=== PATIENT | female | born 1940 | race Caucasian/White ===

== ENCOUNTER → 2017-09-13 | Outpatient (CLI) | payer MEDICARE ==
[2017-09-13 11:13] LABS: BASO % 1 % (0-3); EOS # 0.3 x10^3/uL (0.0-0.7); EOS % 5 % (0-3); HEMATOCRIT 41.1 % (36.0-47.0); HEMOGLOBIN 13.8 g/dL (12.0-15.5); LYMPH # 1.5 x10^3/uL (1.0-4.8); LYMPH % 25 % (24-48); MEAN CORPUSCULAR HEMOGLOBIN 31 pg (25-35); MEAN CORPUSCULAR HGB CONC 34 g/dL (31-37); MEAN CORPUSCULAR VOLUME 91 fL (79-100); MONO # 0.7 x10^3/uL (0.0-1.1); MONO % 12 % (0-9); NEUT # 3.3 x10^3uL (1.8-7.7); NEUT % 58 % (31-73); PLATELET COUNT 261 x10^3/uL (140-400); RED CELL DISTRIBUTION WIDTH 13.8 % (11.5-14.5); WHITE BLOOD COUNT 5.8 x10^3/uL (4.0-11.0)
--- NOTE | 2017-09-13 12:40 | RAD ---
EXAM: Maxillofacial bone CT without contrast. HISTORY: Sinusitis. TECHNIQUE: Computed tomographic images of the paranasal sinuses were obtained without contrast. *One or more of the following individualized dose reduction techniques were utilized for this examination: 1. Automated exposure control. 2. Adjustment of the mA and/or kV according to patient size. 3. Use of iterative reconstruction technique. COMPARISON: None. FINDINGS: The paranasal sinuses are clear. The ostiomeatal units are patent. There is a right grabiel bullosa. There is mild nasal septal deviation. There is evidence of lens surgery. The mastoid air cells are clear. No calvarial lesion is seen. There is cerebral volume loss. There are areas of hypodensity within the cerebral white matter likely due to chronic small vessel disease. IMPRESSION: No evidence of acute sinusitis. Electronically signed by: Rita Gutierrez MD (09/13/2017 12:37 PM) [id number]
[2017-09-17 14:08] LABS: ALTERNARIA 0.27 kU/L (Class 0/I); ASH <0.10 kU/L (Class 0); ASPERGILLUS <0.10 kU/L (Class 0); BERMUDA <0.10 kU/L (Class 0); CAT DANDER <0.10 kU/L (Class 0); CLADOSPORIUM <0.10 kU/L (Class 0); COCKROACH <0.10 kU/L (Class 0); COTTONWOOD <0.10 kU/L (Class 0); DOG DANDER <0.10 kU/L (Class 0); DUST MITE <0.10 kU/L (Class 0); ELM <0.10 kU/L (Class 0); MAPLE <0.10 kU/L (Class 0); MOUNTAIN CEDAR <0.10 kU/L (Class 0); MULBERRY <0.10 kU/L (Class 0); NETTLE <0.10 kU/L (Class 0); OAK TREE <0.10 kU/L (Class 0); PENICILLIUM <0.10 kU/L (Class 0); RAST IGE 9 IU/mL (0-100); RUSSIAN THISTLE <0.10 kU/L (Class 0); SHEEP SORREL <0.10 kU/L (Class 0); SHORT RAGWEED 0.15 kU/L (Class 0/I); TIMOTHY GRASS <0.10 kU/L (Class 0)
== END | disposition home or self-care (01) ==
LOC: CT 10:21
PROVIDERS: ATTEND Specialist
DX: J32.9 Chronic sinusitis, unspecified (principal); J34.2 Deviated nasal septum; J45.909 Unspecified asthma, uncomplicated; R05 Cough
CPT/HCPCS: 36415; 70486; 82784; 85025; 86001

== ENCOUNTER → 2018-04-23 | Outpatient (CLI) | payer MEDICARE ==
--- NOTE | 2018-04-23 16:46 | RAD ---
EXAM: CT Chest without IV contrast CLINICAL HISTORY: asthma, chronic fatigue COMPARISON: Radiograph 09/10/2015 TECHNIQUE: CT of the chest without intravenous contrast. Axial, coronal and sagittal reformatted images were generated. ---PQRS compliance statement - One or more of the following individualized dose reduction techniques were utilized for this study: 1. Automated exposure control 2. Adjustment of the mA and/or kV according to patient size 3. Use of iterative reconstruction technique--- FINDINGS: Lack of intravenous contrast limits evaluation of solid organs, vasculature, and lymph nodes. Chest: A 1.6 cm right thyroid nodule is seen. This can be further assessed by CT. A lipoma is seen displacing the right latissimus dorsi muscle at the level of the scapula, possibly intramuscular. This results in mild mass effect on portions of the right brachial plexus inferiorly. Heart is not enlarged. Coronary artery calcifications are seen. No pericardial effusion. Ascending aorta measures approximately 3.8 cm. No pleural effusion or pneumothorax. No thoracic lymphadenopathy. Dependent opacities bilaterally, likely atelectasis. If 4 mm right upper lobe lung nodule (image 22) is seen. Mild emphysematous changes are seen. Calcified granulomas are seen. Visualized Upper abdomen: Changes of gastroesophageal surgery, likely fundoplication, are seen. Left renal cystic lesion is seen measuring 1.9 cm. Bones: Degenerative changes of the spine are partially profiled. IMPRESSION: 1. Minimal dependent opacities bilaterally likely atelectasis. 2. 4 mm lung nodule seen in the right upper lobe. This can be further evaluated with CT in one year. 3. Lipomatous lesion in the right axillary region mildly displacing the latissimus dorsi muscle abuts and causes mild mass effect on the right brachial plexus. Electronically signed by: Ric Grove MD (04/23/2018 4:43 PM) [facility]
--- NOTE | 2018-04-23 16:51 | RAD ---
CLINICAL HISTORY: nasal congestion COMPARISON: None available. TECHNIQUE: Helical CT of the face/paranasal sinuses were acquired. Coronal and sagittal reformats were also generated and reviewed. FINDINGS: No definite fracture is noted of the facial bones. The visualized paranasal sinuses are well-aerated. No evidence of air-fluid levels. The mastoids are unremarkable. The globes, extraocular muscles, optic nerves and retrobulbar fat are normal. Visualized upper aerodigestive tract is normal. Mandible and bilateral temporomandibular joints are normal. Atherosclerotic calcifications of the intracranial internal carotid arteries is seen. Mild atlantodental degenerative change. IMPRESSION: 1. No evidence of acute facial bone fracture. 2. The visualized paranasal sinuses are clear without air-fluid levels. 3. Mastoid are cells are also essentially clear. Electronically signed by: Ric Grove MD (04/23/2018 4:47 PM) [facility]
== END | disposition home or self-care (01) ==
LOC: CT 12:49
PROVIDERS: ATTEND Specialist
DX: J45.998 Other asthma (principal); R09.81 Nasal congestion; E04.1 Nontoxic single thyroid nodule; N28.1 Cyst of kidney, acquired; R91.1 Solitary pulmonary nodule; I70.8 Atherosclerosis of other arteries; I25.10 Atherosclerotic heart disease of native coronary artery without angina pectoris; M47.892 Other spondylosis, cervical region
CPT/HCPCS: 70486; 71250

== ENCOUNTER → 2019-07-03 | Outpatient (CLI) | payer MEDICARE ==
--- NOTE | 2019-07-03 12:19 | RAD ---
EXAM: Dual energy x-ray absorptiometry (DEXA). HISTORY: Postmenopausal female presents for osteoporosis screening. COMPARISON: 01/11/2016. TECHNIQUE: Dual energy x-ray absorptiometry of the lumbar spine and right hip was performed. Calculation of bone mineral density based on standard deviations above or below the expected young adult normal value (T-score) was completed. FINDINGS: The average bone mineral density in the 1st through 4th lumbar vertebrae is 1.327 g/cmxcm, corresponding with a T-score of 1.2. There has been a 2.0 percent decrease in density of the lumbar spine compared to the prior study. The average total bone mineral density in the right hip is 0.754 g/cmxcm, corresponding with a T-score of -1.6. There has been a 7.2 percent decrease in density of the right hip compared to the prior study. IMPRESSION: 1. Osteopenia measured at the right hip. 2. Normal bone mineral density measured at the lumbar spine. Note: Definitions established by the World Health Organization: 1. Normal: T-score is -1.0 or above. 2. Osteopenia: T-score is between -1.0 and -2.5 . 3. Osteoporosis: T-score is -2.5 or below. Electronically signed by: Rita Gutierrez MD (07/03/2019 12:16 PM) [id number]
--- NOTE | 2019-07-04 14:11 | RAD ---
History: Routine screening. Technique: Bilateral digital mammographic routine views were obtained with 2-D and 3-D technique including use of CAD - computer aided detection. Comparison: January 31, 2013, 03/23/2014. Findings: Breast Tissue Density B :The breast tissue is composed of mixed fatty and fibroglandular tissue. There are no suspicious masses, microcalcifications or areas of architectural distortion. Impression: Negative mammogram. BI-RADS Category 1: Negative. Normal interval followup. A mammogram does not have 100% sensitivity and therefore a negative imaging study should not delay further work up of a suspicious abnormality. The patient will receive a letter with the results in the mail. Patient information is entered into the reminder system with a target due date for the next screening mammogram. The patient will receive a reminder. "Our facility is accredited by the [employer] Mammography Program." BI-RADS 1 -- negative findings (within normal)
== END | disposition home or self-care (01) ==
LOC: MAMMO 10:33
PROVIDERS: ATTEND Specialist
DX: Z12.31 Encounter for screening mammogram for malignant neoplasm of breast (principal); Z13.820 Encounter for screening for osteoporosis; M85.88 Other specified disorders of bone density and structure, other site; M81.0 Age-related osteoporosis without current pathological fracture
CPT/HCPCS: 77063; 77067; 77080

== ENCOUNTER → 2020-07-12 | Outpatient (CLI) | payer MEDICARE ==
--- NOTE | 2020-07-12 12:22 | RAD ---
EXAM: Bilateral digital screening mammogram with tomosynthesis. HISTORY: 79-year-old female presents for screening mammography. TECHNIQUE: Full-field digital craniocaudal and mediolateral oblique 2D and 3D tomosynthesis images of both breasts are obtained for evaluation. Computer aided detection was applied. COMPARISON: 07/03/2019 BREAST PARENCHYMAL DENSITY: Level B - Scattered fibroglandular densities. FINDINGS: There is no new suspicious mass, microcalcification or region of architectural distortion. There are stable areas of asymmetry and nodularity within both breasts. There are a few benign calcif ications within both breasts. IMPRESSION: BI-RADS Category 2: Benign finding(s). RECOMMENDATION: Annual mammography is recommended. If your mammogram demonstrates that you have dense breast tissue, which could hide abnormalities, and if you have other risk factors for breast cancer that have been identified, you might benefit from s upplemental screening tests that may be suggested by your ordering physician. Dense breast tissue, i n and of itself, is a relatively common condition. This information is not provided to cause undue c oncern, but rather to raise your awareness and to promote discussion with your physician regarding th e presence of other risk factors, in addition to dense breast tissue. A report of your mammography re sults will be sent to you and your physician. You should contact your physician if you have any ques tions or concerns regarding this report. Mammography is a sensitive method for finding small breast cancers, but it does not detect them all a nd is not a substitute for careful clinical examination. A negative mammogram does not negate a clin ically suspicious finding and should not result in delay in biopsying a clinically suspicious abnorma lity. PQRS compliance statement - Patient information was entered into a reminder system with a target due date for the next mammogram. "Our facility is accredited by the [employer] Mammography Program." Electronically signed by: Rita Gutierrez MD (07/12/2020 12:19 PM) [id number]
== END ==
LOC: MAMMO 10:46
PROVIDERS: ATTEND Specialist
DX: Z12.31 Encounter for screening mammogram for malignant neoplasm of breast (principal)
CPT/HCPCS: 77063; 77067

== ENCOUNTER 2021-02-01 14:38 | Inpatient (IN) | payer MEDICARE ==
[~2021-02-01] VITALS: Ht 157.5 cm; Wt 63.5 kg
[2021-02-01] MEDS ORDERED: IV NORMAL SALINE 1,000ML 1,000 ML IV ONE (14:45)
[2021-02-01 15:02] LABS: BASO # 0.2 x10^3/uL (0.0-0.2); BASO % 2 % (0-3); EOS % 0 % (0-3); HEMATOCRIT 41.7 % (36.0-47.0); HEMOGLOBIN 13.9 g/dL (12.0-15.5); LYMPH # 0.9 x10^3/uL (1.0-4.8); LYMPH % 6 % (24-48); MEAN CORPUSCULAR HEMOGLOBIN 30 pg (25-35); MEAN CORPUSCULAR HGB CONC 33 g/dL (31-37); MEAN CORPUSCULAR VOLUME 90 fL (79-100); MONO # 1.2 x10^3/uL (0.0-1.1); MONO % 9 % (0-9); NEUT # 11.7 x10^3uL (1.8-7.7); NEUT % 83 % (31-73); PLATELET COUNT 259 x10^3/uL (140-400); RED BLOOD COUNT 4.64 x10^6/uL (3.50-5.40)
--- NOTE | 2021-02-01 15:03 | PHYS DOC ---
General Adult EDM: Chief Complaint: WEAKNESS/GENERALIZED HPI: HPI: -year-old female who presents to the ER for generalized weakness, chills, fever and nausea that started this morning. Patient reports that she is a history of squamous cell carcinoma and she had surgery and had her wounds on her legs dres sed with wound care yesterday. Patient states that she had her Covid booster approximately 2 to 3 weeks ago. She denies cough, shortness of breath, chest pain, vomiting or diarrhea. Review of Systems: Review of Systems: 14 body systems of the review of systems have been reviewed. See HPI for pertinent positive and negative responses, otherwise all other systems are negative, nonpertinent or noncontributory Physical Exam: PE: Constitutional: Well developed, well nourished, no acute distress, non-toxic appearance. [] HENT: Normocephalic, atraumatic, bilateral external ears normal, oropharynx moist, no oral exudates, nose normal. [] Eyes: PERRL, EOMI, conjunctiva normal, no discharge. [] Neck: Normal range of motion, no stridor Cardiovascular:Heart rate regular/tachycardia rhythm, no murmur [] Lungs & Thorax: Bilateral breath sounds clear to auscultation [] Abdomen: Bowel sounds normal, soft, no tenderness, no masses, no pulsatile masses. [] Skin: Warm, dry, no rash, dressings unwrapped from patient's lower legs and her left lower leg surrounding the suture removal site was erythematous and warm Back: Normal range of motion Extremities: No tenderness, no cyanosis, no clubbing, ROM intact, trace edema noted to right foot, dressing removed from right lower extremity and it appears normal without any redness or warmth Neurologic: Alert and oriented X 3, normal motor function, normal sensory function, no focal deficits noted. [] Psychologic: Affect normal, judgement normal, mood normal. [] Current Patient Data: Labs: Laboratory Tests Test 02/01/21 14:42 02/01/21 15:33 White Blood Count 14.0 x10^3/uL Red Blood Count 4.64 x10^6/uL Hemoglobin 13.9 g/dL Hematocrit 41.7 % Mean Corpuscular Volume 90 fL Mean Corpuscular Hemoglobin 30 pg Mean Corpuscular Hemoglobin Concent 33 g/dL Red Cell Distribution Width 14.0 % Platelet Count 259 x10^3/uL Neutrophils (%) (Auto) 83 % Lymphocytes (%) (Auto) 6 % Monocytes (%) (Auto) 9 % Eosinophils (%) (Auto) 0 % Basophils (%) (Auto) 2 % Neutrophils # (Auto) 11.7 x10^3uL Lymphocytes # (Auto) 0.9 x10^3/uL Monocytes # (Auto) 1.2 x10^3/uL Eosinophils # (Auto) 0.0 x10^3/uL Basophils # (Auto) 0.2 x10^3/uL Sodium Level 134 mmol/L Potassium Level 4.2 mmol/L Chloride Level 100 mmol/L Carbon Dioxide Level 23 mmol/L Anion Gap 11 Blood Urea Nitrogen 9 mg/dL Creatinine 0.9 mg/dL Estimated GFR (Cockcroft-Gault) 60.1 BUN/Creatinine Ratio 10 Glucose Level 136 mg/dL Lactic Acid Level 1.5 mmol/L Calcium Level 8.7 mg/dL Total Bilirubin 0.6 mg/dL Aspartate Amino Transf (AST/SGOT) 21 U/L Alanine Aminotransferase (ALT/SGPT) 29 U/L Alkaline Phosphatase 75 U/L Troponin I Quantitative < 0.017 ng/mL Total Protein 6.7 g/dL Albumin 3.7 g/dL Albumin/Globulin Ratio 1.2 Urine Collection Type Unknown Urine Color Yellow Urine Clarity Clear Urine pH 8.5 Urine Specific [place] 1.020 Urine Protein Neg Urine Glucose (UA) Neg mg/dL Urine Ketones (Stick) Neg mg/dL Urine Blood Neg Urine Nitrite Neg Urine Bilirubin Neg Urine Urobilinogen Dipstick 0.2 mg/dL Urine Leukocyte Esterase Neg Urine RBC 0 /HPF Urine WBC 0 /HPF Urine Squamous Epithelial Cells Few /LPF Urine Bacteria 0 /HPF Current Medications Medications (Trade) Dose Ordered Sig/Dallin Route PRN Reason Start Time Stop Time Status Last Admin Dose Admin Sodium Chloride 1,000 ml @ 1,000 mls/hr 1X ONCE IV 02/01/21 14:45 02/01/21 15:48 DC Fentanyl Citrate (Fentanyl 2ml Vial) 50 mcg 1X ONCE IVP 02/01/21 15:00 02/01/21 15:48 DC 02/01/21 15:18 Acetaminophen (Tylenol) 650 mg 1X ONCE PO 02/01/21 15:30 02/01/21 15:48 DC EKG: EKG: EKG performed by ER staff at 1501 shows sinus tachycardia with a rate of [address] Simental at 1507[] Radiology/Procedures: Radiology/Procedures: []PROCEDURE: PORTABLE CHEST 1V XR CHEST 1V History: Reason: fever, weakness / Spl. Instructions: / History: Comparison: None. Findings: No consolidation or pleural effusion. Normal heart size. No pneumothorax. Impression: 1. No acute cardiopulmonary process. Electronically signed by: Tyrone Castro DO (02/01/2021 3:46 PM) [facility] DICTATED AND SIGNED BY: TYRONE CASTRO DO DATE: 02/01/21 1546 CC: WALT RAHMAN APRN; MICHELLE SHAFFER MD ~MTH0 0 Heart Score: C/O Chest Pain: No Risk Factors: Risk Factors: DM, Current or recent (<one month) smoker, HTN, HLP, family hi story of CAD, obesity. Risk Scores: Score 0 - 3: 2.5% MACE over next 6 weeks - Discharge Home Score 4 - 6: 20.3% MACE over next 6 weeks - Admit for Clinical Observation Score 7 - 10: 72.7% MACE over next 6 weeks - Early Invasive Strategies Course & Med Decision Making: Course & Med Decision Making Pertinent Labs and Imaging studies reviewed. (See chart for details) [] Patient is an 80-year-old female who presents to the ER for weakness, chills, fever and nausea that started this morning. Work-up in the ER consisted of blood work, urinalysis, chest x-ray, EKG. Patient was treated with fluids and pain medication. Patient was noted to have leukocytosis, she was also febrile in the ER and mildly tachycardic. I discussed patient's case with Dr. Rodriguez who agreed to admit the patient under his services for IV antibiotics. I discussed patient's findings with her as well as treatment plan and she is agreeable to admission at this time. Bridge orders placed in care transferred at this time 1601. Rajinder Disclaimer: Rajinder Disclaimer: This electronic medical record was generated, in whole or in part, using a voice recognition dictation system. Departure Departure: Impression: Primary Impression: Cellulitis Qualified Codes: L03.116 - Cellulitis of left lower limb Disposition: ADMITTED INPATIENT Admitting Physician: Lena Rodriguez Condition: STABLE Referrals: MICHELLE SHAFFER MD (PCP) WALT RAHMAN APRN Feb 01, 2021 15:03
[2021-02-01 15:11] LABS: CALCIUM 8.7 mg/dL (8.5-10.1); CREATININE 0.9 mg/dL (0.6-1.0); GFR 60.1; POTASSIUM 4.2 mmol/L (3.5-5.1)
[2021-02-01 15:26] LABS: ALBUMIN 3.7 g/dL (3.4-5.0); ALBUMIN/GLOBULIN RATIO 1.2 (1.0-1.7); TOTAL BILIRUBIN 0.6 mg/dL (0.2-1.0); TOTAL PROTEIN 6.7 g/dL (6.4-8.2)
[2021-02-01] MEDS ORDERED: ACETAMINOPHEN 325 MG TABLET PO ONE (15:30)
--- NOTE | 2021-02-01 15:49 | RAD ---
XR CHEST 1V History: Reason: fever, weakness / Spl. Instructions: / History: Comparison: None. Findings: No consolidation or pleural effusion. Normal heart size. No pneumothorax. Impression: 1. No acute cardiopulmonary process. Electronically signed by: Tyrone Herring DO (02/01/2021 3:46 PM) [facility]
[2021-02-01 15:54] LABS: BACTERIA,URINE 0 /HPF (0-FEW); BILIRUBIN,URINE NEG (NEG); CLARITY,URINE CLEAR; COLOR,URINE YELLOW; GLUCOSE,URINE NEG (NEG); NITRITE,URINE NEG (NEG); RBC,URINE 0 /HPF (0-2); SQUAMOUS EPITHELIAL CELL,UR FEW /LPF; UROBILINOGEN,URINE 0.2 mg/dL (0.2 mg/dL); WBC,URINE 0 /HPF (0-4)
[2021-02-01] MEDS ORDERED: VANCOMYCIN PER PHARMACY MC PRN (16:15)
[2021-02-01] MEDS ORDERED: VANCOMYCIN 1.5 GM in IV NORMAL SALINE 500ML 500 ML IV ONE (16:30)
[2021-02-01] MEDS ORDERED: IV NORMAL SALINE 500ML 0 ML ONE (16:40)
[2021-02-01] MEDS ORDERED: VANCOMYCIN 1 GM VIAL. ONE (16:41)
[2021-02-01] MEDS ORDERED: FLUCONAZOLE 100 MG TABLET. PO ONE (18:00)
[2021-02-01 18:53] VITALS: BP 86/48
--- NOTE | 2021-02-01 19:40 | EKG ---
[address] [address] Test Date: 2021-02-01 Test Time: 15:01:31 Pat Name: QUITA MARTINEZ Department: Room: Gender: F Manager Garden: JASON : 1940 Requested By: WALT RAHMAN Order Number: [id number] Reading MD: Measurements Intervals [place] Rate: 101 P: 34 KS: 214 QRS: 16 QRSD: 72 T: 54 QT: 344 QTc: 453 Interpretive Statements SINUS TACHYCARDIA PROLONGED [place] INTERVAL LOW LIMB LEAD VOLTAGE ABNORMAL ECG RI6.02 No previous ECG available for comparison
[2021-02-01] MEDS ORDERED: UBID50TA PO (20:09)
[2021-02-01] MEDS ORDERED: POTA10TA5 PO (20:09)
[2021-02-01] MEDS ORDERED: ALBU2.5V8 INH (20:09)
[2021-02-01] MEDS ORDERED: IPRA0.2S5 IH (20:09)
[2021-02-01] MEDS ORDERED: DIPH25CA58 PO (20:09)
[2021-02-01] MEDS ORDERED: TRAZ-120 PO (20:09)
[2021-02-01] MEDS ORDERED: AMLO-186 PO (20:09)
[2021-02-01] MEDS ORDERED: LATA2.5D2 OU (20:09)
[2021-02-01] MEDS ORDERED: SPIR50TA4 PO (20:09)
[2021-02-01] MEDS ORDERED: CETI10TA74 PO (20:09)
[2021-02-01] MEDS ORDERED: FLUT1DIS3 IH (20:09)
[2021-02-01] MEDS ORDERED: CHOL10004 PO (20:09)
[2021-02-01] MEDS ORDERED: MEPO100S SQ (20:09)
[2021-02-01] MEDS ORDERED: IPRA3AMP29 NEB (20:09)
[2021-02-01] MEDS ORDERED: SENN8.6T99 PO (20:09)
[2021-02-01] MEDS ORDERED: IPRATRPIUM/ALBUTEROL 0.5/2.5MG 3 ML NEBU. NEB PRN (20:15)
[2021-02-01] MEDS ORDERED: diphenhydrAMINE HCL 25 MG CAPSULE PO PRN (20:15)
[2021-02-01] MEDS ORDERED: SENNOSIDES 8.6 MG TABLET PO PRN (20:15)
[2021-02-01 20:23] VITALS: BP 104/65
[2021-02-01] MEDS ORDERED: SPIRONOLACTONE 25 MG TABLET PO SCH (21:00)
[2021-02-01] MEDS: IPRATROPIUM BROMIDE 0.5 MG/2.5 ML NEBU. IH SCH (21:00)
[2021-02-01] MEDS ORDERED: SALMETEROL IH SCH (21:00)
[2021-02-01] MEDS ORDERED: FLUTICASONE IH SCH (21:00)
[2021-02-01] MEDS: HYDROcodone/APAP 5/325MG 1 TAB TABLET PO PRN (21:11)
[2021-02-01] MEDS: LATANOPROST 0.005% OPHTH SOLUTION 2.5ML BOTTLE. OU SCH (21:11)
[2021-02-01] MEDS: traZODone 50 MG TABLET. PO SCH (21:11)
--- NOTE | 2021-02-01 21:12 | NUR ---
Pharmacy Vancomycin Dosing Note S:Consulted to monitor and dose vancomycin started 02/01/21. O:QUITA MARTINEZ is a 80 year old F with Cellulitis, . Height: 5 feet, 2 inches Weight: 63.5 kg [place] Body Weight: 50.10 Adjusted Body Weight: 55.46 Dosing Weight: Actual Other Antibiotics: LABS: Last BUN: 9 Last Creatinine: 0.9 Creatinine Clearance: 38.63 Last WBC: 14.0 Vancomycin Dosing: Loading Dose: 1500 mg x1 Dosing Weight: Actual Target Trough: 10-20 A: Based on: Actual weight, renal function, and indication P: 1. Begin Vancomycin 1000 mg IV q24h 2. Follow up Trough level on 02/03/21 at 1630 3. Pharmacy will continue to monitor, follow and adjust therapy as needed. LIZETT BUSH, 02/01/21 [id number]
--- NOTE | 2021-02-01 23:48 | NUR ---
The patient, QUITA MARTINEZ, 80 y/o, F admitted by ELYSSA DOWLING MD, was given written information regarding hospital policies, unit procedures and contact persons. Valuables were checked and vital signs noted. PT presents after having an excision of SCC to BLE with suture removal 01/31/21. PT with increasing pain and difficulty ambulating. PT admitted with BLE cellulitis. Reviewed with PT her PMH, PSH, SH, FH and medications. Home medications restarted and pain medication added. PT oriented to unit.
[2021-02-02 00:35] VITALS: BP 102/60
[2021-02-02] MEDS: HYDROcodone/APAP 5/325MG 1 TAB TABLET PO PRN ×4 (03:00→18:33)
[2021-02-02] MEDS ORDERED: ALBUTEROL SULFATE 2.5 MG/3 ML NEBU. ONE (05:29)
[2021-02-02] MEDS: ALBUTEROL SULFATE 2.5 MG/3 ML NEBU. NEB SCH ×4 (06:01→20:00)
[2021-02-02 06:25] LABS: BASO % 1 % (0-3); EOS % 0 % (0-3); HEMATOCRIT 37.8 % (36.0-47.0); HEMOGLOBIN 12.6 g/dL (12.0-15.5); LYMPH # 1.1 x10^3/uL (1.0-4.8); LYMPH % 12 % (24-48); MEAN CORPUSCULAR HEMOGLOBIN 30 pg (25-35); MEAN CORPUSCULAR HGB CONC 33 g/dL (31-37); MEAN CORPUSCULAR VOLUME 91 fL (79-100); MONO # 0.9 x10^3/uL (0.0-1.1); MONO % 10 % (0-9); NEUT # 6.6 x10^3uL (1.8-7.7); NEUT % 77 % (31-73); PLATELET COUNT 237 x10^3/uL (140-400); RED BLOOD COUNT 4.16 x10^6/uL (3.50-5.40); RED CELL DISTRIBUTION WIDTH 13.7 % (11.5-14.5); WHITE BLOOD COUNT 8.6 x10^3/uL (4.0-11.0)
[2021-02-02 06:40] LABS: CREATININE 0.8 mg/dL (0.6-1.0); GFR 68.8; POTASSIUM 3.6 mmol/L (3.5-5.1); TOTAL BILIRUBIN 0.5 mg/dL (0.2-1.0); TOTAL PROTEIN 5.9 g/dL (6.4-8.2)
[2021-02-02 06:41] VITALS: BP 97/62
[2021-02-02] MEDS: POTASSIUM CHLORIDE 10 MEQ TABLET.ER. PO SCH (08:00)
[2021-02-02] MEDS ORDERED: amLODIPine BESYLATE 5 MG TABLET PO SCH (09:00)
[2021-02-02] MEDS ORDERED: FLU VACC QUAD 21-22 (6MOS+) PF 0.5 ML SYRINGE. VAX IM ONE (09:00)
[2021-02-02] MEDS: BUDESONIDE 0.5 MG/2 ML NEBU NEB SCH ×2 (09:09→20:00)
[2021-02-02] MEDS: UBIDECARENONE 50 MG CAPSULE. PO SCH (09:27)
[2021-02-02] MEDS ORDERED: diphenhydrAMINE 50 MG/ML VIAL IVP PRN (09:30)
[2021-02-02] MEDS: CHOLECALCIFEROL (VITAMIN D3) 1,000 UNIT TABLET PO SCH (09:32)
[2021-02-02] MEDS: CETIRIZINE HCL 10 MG TABLET PO SCH (09:32)
--- NOTE | 2021-02-02 09:58 | HP ---
ADMIT DATE: 02/01/2021 ATTENDING PHYSICIAN: Dr. Wells. CHIEF COMPLAINT: Redness and swelling of both legs. 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 She has cellulitis of both legs. The underlying diagnosis is squamous cell cancer of the skin. She has had Mohs surgery by her Air Pollution Compliance Inspector. She has eschar and redness and open skin on the anterior surface of the right ankle and also cellulitis extending [facility] up the hyde to her knees in the right leg, most likely this is a Staphylococcus infection. She has been on many weeks of oral Bactrim and Keflex without any improvement. She is admitted for vancomycin intravenous therapy. She has pain and itching over the site. PAST MEDICAL HISTORY: Significant for the squamous cell cancer of the skin, treated with Mohs surgery, essential hypertension, gastroesophageal reflux disease. She has had a Jon fundoplication. She also has some hearing loss in the right ear. She has hypertension. CURRENT MEDICATIONS: Reviewed. ALLERGIES: SHE HAS ALLERGIES TO RAGWEED, POLLEN, LATEX AND ADHESIVE TAPE. CURRENT MEDICINES: Includes albuterol p.r.n., amlodipine, budesonide, cetirizine, Coenzyme Q. diphenhydramine, Xalatan, potassium, Aldactone, senna, and vitamin D. SOCIAL HISTORY: She is a nonsmoker, nondrinker. FAMILY HISTORY: Both parents of stroke at age 75 and 76 respectively. She is a retired ICU nurse and former district administrator. She is . She has several grandchildren that are adults. REVIEW OF SYSTEMS: Significant for generalized weakness. She had low-grade fevers. She had some nausea, localized pain and swelling. All other systems reviewed and determined to be negative. PHYSICAL EXAMINATION: GENERAL: When I saw her, this is a pleasant, alert female. VITAL SIGNS: Her initial vital signs showed a blood pressure 97/62, temperature 98.4 degrees Fahrenheit. Her oxygen saturation was 94% on room air. Her pulse is 73 and regular. HEENT: Head is without trauma. Pupils are reactive. Sclerae nonicteric. Oropharynx clear. NECK: Supple. No bruits. LUNGS: Clear. CARDIOVASCULAR: Regular heart tones. ABDOMEN: Soft. EXTREMITIES: Showed significant swelling, erythema of both lower extremities from the ankles extending up to her knees. SKIN: Warm and dry. There is an eschar and scar tissue over the anterior surface of her right hyde. Distal pulses are intact. PERTINENT LABORATORY STUDIES: The hemoglobin on admission was 13.9 g/dL with a white count of 14,000. Electrolytes within normal range. Blood sugar is 111. Transaminases normal. Cardiac enzymes negative. ASSESSMENT: 1. An 80-year-old female with cellulitis of both legs related to her squamous cell cancer of the skin with recent procedures. 2. Essential hypertension, now she is a bit hypotensive. 3. Mild dehydration, on diuretics. 4. History of asthma. 5. Gastroesophageal reflux disease. PLAN: 1. Admit to the inpatient unit. 2. Intravenous vancomycin as scheduled. 3. I shall hold off her blood pressure meds and her Aldactone for now. 4. Gentle IV hydration. 5. Pain and itching control. MARILYNN DR: Jovon TID: [id number] CC: MICHELLE SHAFFER MD
[2021-02-02 10:23] VITALS: BP 101/57
[2021-02-02 15:44] VITALS: BP 112/65
--- NOTE | 2021-02-02 16:51 | NUR ---
Wound/Ostomy Care Wound Type/Assessment: Wound care consult for cellulitic open incisions to BLE s/p Mohs procedure d.t squamous cell carcinoma. Cleansed, measured, assessed and redressed wounds. Treatment Recommendations/Plan: Cleanse wound, apply iodoflex, non-adherent foam or ABD and kerlix and medigrip size D. Change every 2 days and PRN for drainage. Education provided: WC POC, elevation of LE, WC follow up and PU prevention Offloading surface/device: Heels floated on pillows, pt is a self turn Recommended Referrals/Tests: na Discharge Recommendations for dressings: Continue with Iodoflex, ABD and kerlix with compression stocking Addendum: 02/02/21 at 1657 by MARCO A BUCKLEY RN Recommend Raymond BID for wound healing
[2021-02-02] MEDS ORDERED: VANCOMYCIN 1 GM in IV NORMAL SALINE 250ML 250 ML IV SCH (17:00)
[2021-02-02 20:56] VITALS: BP 101/60
[2021-02-02] MEDS: IPRATROPIUM BROMIDE 0.5 MG/2.5 ML NEBU. IH SCH (21:00)
[2021-02-02] MEDS: traZODone 50 MG TABLET. PO SCH (21:06)
[2021-02-02] MEDS: LATANOPROST 0.005% OPHTH SOLUTION 2.5ML BOTTLE. OU SCH (21:07)
[2021-02-02 23:01] VITALS: BP 101/64
[2021-02-03] MEDS: BUDESONIDE 0.5 MG/2 ML NEBU NEB SCH ×2 (04:58→08:00)
[2021-02-03] MEDS: ALBUTEROL SULFATE 2.5 MG/3 ML NEBU. NEB SCH ×2 (04:58→11:21)
--- NOTE | 2021-02-03 04:59 | NUR ---
pt has been refusing breathing txs. She told the nurse that she does not need them and will call if she does need one.
[2021-02-03 06:22] VITALS: BP 130/74
[2021-02-03] MEDS: POTASSIUM CHLORIDE 10 MEQ TABLET.ER. PO SCH (08:00)
[2021-02-03] MEDS: HYDROcodone/APAP 5/325MG 1 TAB TABLET PO PRN ×2 (09:08→14:07)
[2021-02-03] MEDS: UBIDECARENONE 50 MG CAPSULE. PO SCH (09:08)
[2021-02-03] MEDS: CHOLECALCIFEROL (VITAMIN D3) 1,000 UNIT TABLET PO SCH (09:08)
[2021-02-03] MEDS: CETIRIZINE HCL 10 MG TABLET PO SCH (09:08)
[2021-02-03 11:11] VITALS: BP 111/60
[2021-02-03 14:47] VITALS: BP 121/75
--- NOTE | 2021-02-03 15:03 | DS ---
DATE OF DISCHARGE: 02/03/2021 ATTENDING PHYSICIAN: Dr. Wells. FINAL DISCHARGE DIAGNOSES: 1. Cellulitis to both legs. 2. Squamous cell cancer of the skin with recent Mohs procedure. 3. Chronic nonhealing ulcers. 4. Essential hypertension. 5. Mild dehydration on diuretics. 6. History of asthma. 7. Gastroesophageal reflux disease. 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 She had squamous cell cancer of the skin involving the anterior surface of both shins, recent dermatologic Mohs procedure. She has open wounds that are nonhealing. She is admitted with localized cellulitis. PHYSICAL EXAMINATION: Please see the dictated note. PERTINENT LABORATORY AND X-RAY STUDIES: Admission hemoglobin was 13.9 g/dL; white count 14,000, repeat was 8600. Chemistry panel unremarkable. Creatinine 0.9 mg/dL. Nonfasting blood sugar 111. Transaminases normal. Cardiac enzymes negative. COVID-19 serology was not detected. COURSE IN THE HOSPITAL: The patient was admitted, started on intravenous vancomycin. We also had the wound team to see her and the dressing was changed accordingly. Because of most likely some peripheral vascular disease, which has not been evaluated, it was decided she would be better to be transferred to [facility] where she can continue her IV antibiotics and have a full wound team evaluation including debridement of the wound, hyperbaric oxygen therapy, surgical consultation and other modalities to help with wound healing. On the second hospital day, I spoke with Dr. Fabio Chino, hospitalist, at [facility]. He is agreeable to take the patient once a bed is available. In any event, she was discharged from our hospital to go to [facility] for higher level of care, including the wound team. She will continue her scheduled vancomycin per Pharmacy, albuterol, amlodipine, cetirizine, cholecalciferol, fluticasone inhaler, ipratropium bromide, Xalatan eyedrops, potassium, senna, trazodone, and coenzyme Q10. For now, we took the liberty of holding her Aldactone since she was a little on the dry side. She gets Nucala injections monthly. Her prognosis is fair. She remains a full code per advanced directive. The patient was then discharged from our hospital in stable condition to be readmitted to the hospitalist service at [facility] for continued wound care. Total discharge time spent was 43 minutes. BUBBA/HARI/MARIO DR: Jovon TID: [id number] CC: MICHELLE SHAFFER MD
[2021-02-03] MEDS ORDERED: ALBUTEROL SULFATE 2.5 MG/3 ML NEBU. NEB PRN (16:00)
[2021-02-03] MEDS ORDERED: BUDESONIDE 0.5 MG/2 ML NEBU NEB PRN (16:00)
[2021-02-03 16:48] LABS: VANC TR 6.8 mcg/mL (10.0-20.0)
--- NOTE | 2021-02-03 19:17 | NUR ---
PT discharged to EMS care to transfer to [facility] for further wound care. PT walked to cart, secured with straps and wrapped in a blanket. PT belongings double checked and all noted with PT.
== END 2021-02-03 19:20 | disposition short-term general hospital (02) | DRG 603 ==
LOC: ER 14:38 → 1 SOUTH 16:02
PROVIDERS: ADMIT Internal Medicine; ATTEND Internal Medicine
DX: L03.115 Cellulitis of right lower limb (principal); L03.116 Cellulitis of left lower limb; B95.8 Unspecified staphylococcus as the cause of diseases classified elsewhere; E86.0 Dehydration; I10 Essential (primary) hypertension; I73.9 Peripheral vascular disease, unspecified; J45.909 Unspecified asthma, uncomplicated; K21.9 Gastro-esophageal reflux disease without esophagitis; I95.9 Hypotension, unspecified; Z20.822 Contact with and (suspected) exposure to COVID-19; Z91.040 Latex allergy status; Z88.8 Allergy status to other drugs, medicaments and biological substances; Z91.048 Other nonmedicinal substance allergy status; C44.92 Squamous cell carcinoma of skin, unspecified
CPT/HCPCS: 36415; 71045; 80053; 80202; 81001; 83605; 84484; 85025; 87040; 90471; 90686; 93005; 94640; 96374; J1200; J3010; J3370; J7040; J7050; U0003; 99285-25; J7613